=== PATIENT | female | born 1965 | race Caucasian/White ===

== ENCOUNTER → 2024-06-28 11:13 | Outpatient (REF) | payer OTHER, SELFPAY ==
[2024-06-28 13:54] LABS: Rubella Positive
[2024-06-30 09:21] LABS: Quantiferon Mitogen minus NIL 9.96 IU/mL; Quantiferon NIL 0.04 IU/mL; Quantiferon Plus TB1 minus NIL 0.02 IU/mL (<=0.34); Quantiferon TB Gold Plus Negative (Negative)
== END ==
LOC: REG 11:13
PROVIDERS: ATTENDING PHYSICIAN Nurse Practitioner Family
DX: Z23 Encounter for immunization (principal)
CPT/HCPCS: 36415; 86480; 86735; 86762; 86765